=== PATIENT | male | born 1965 | race Two or more races ===

== ENCOUNTER 2024-02-09 13:53 | Emergency (ER) | payer BC ==
[~2024-02-09] VITALS: Ht 182.9 cm; Wt 91.0 kg
[2024-02-09 13:55] VITALS: BP 157/100; PULSE 125; RESP 19; TEMP 99.3; O2SAT 99
[2024-02-09] MEDS ORDERED: PREDNISONE 20MG TABLET PO STA (13:59)
[2024-02-09] MEDS ORDERED: IPRATROPIUM BROMIDE (0.02%) 0.5MG/2.5ML NEB HHN STA (13:59)
[2024-02-09] MEDS ORDERED: ALBUTEROL (0.083%) 2.5MG/3ML NEB HHN SCH (14:00)
[2024-02-09] MEDS ORDERED: IPRATROPIUM/ALBUTEROL 0.5-3(2.5)MG/3ML NEB ONE (14:21)
[2024-02-09] MEDS ORDERED: IPRATROPIUM BROMIDE (0.02%) 0.5MG/2.5ML NEB ONE (14:24)
[2024-02-09] MEDS ORDERED: ALBUTEROL (0.083%) 2.5MG/3ML NEB ONE (14:24)
[2024-02-09] MEDS ORDERED: PREDNISONE 20MG TABLET ONE (14:35)
== END 2024-02-09 15:09 | disposition left against medical advice (07) ==
LOC: ER 13:53
DX: J44.0 Chronic obstructive pulmonary disease with (acute) lower respiratory infection (principal); I48.91 Unspecified atrial fibrillation; F15.10 Other stimulant abuse, uncomplicated
CPT/HCPCS: 71045; 94640; 93005; 99283; J7512; Z7610 ×4